=== PATIENT | male | born 1990 | race Hispanic/Latino ===

== ENCOUNTER 2016-09-29 15:03 | Emergency (ER) | payer MEDICAID ==
[2016-09-29 15:34] VITALS: BMI 41.3
[2016-09-29 15:37] VITALS: BP 130/81; RESP 21; TEMP 98.5; O2SAT 96
[2016-09-29] MEDS ORDERED: TDAP Vaccine 0.5 mL Syr IM ONE (15:53)
--- NOTE | 2016-09-29 15:53 | ED PDOC ---
Arrival/HPI - General Chief Complaint: Abnormal Skin Integrity Time Seen by Provider: 09/29/16 15:40 Historian: Patient - History of Present Illness Narrative History of Present Illness (Text): 09/29/16 15:34 25 y/o male, no significant pmh, nkda, last tetanus over 10 years ago, c/o rt. hand 3rd digit finger laceration x 1 hour. Pt. was using the saw and accidentally sliced the skin, no fever or chills, no headache or night sweat, no dizziness, no change in vision, no difficulty moving the finger, no other medical or psychological complaints. Past Medical History - Provider Review Nursing Documentation Reviewed: Yes - Infectious Disease Hx of Infectious Diseases: None - Tetanus Immunization Tetanus Immunization: Unknown - Past Medical History Past Medical History: No Previous - Psychiatric Hx Psychophysiologic Disorder: Yes Hx Bipolar Disorder: Yes Hx Depression: No Hx Emotional Abuse: No Hx Physical Abuse: No Hx Substance Use: No - Past Surgical History Past Surgical History: No Previous - Anesthesia Hx Anesthesia: No - Suicidal Assessment Feels Threatened In Home Enviroment: No Family/Social History - Physician Review Nursing Documentation Reviewed: Yes Family/Social History: Unknown Family HX Smoking Status: Former Smoker Hx Alcohol Use: Yes Frequency of alcohol use: Socially Hx Substance Use: No Hx Substance Use Treatment: No Allergies/Home Meds Allergies/Adverse Reactions: Allergies No Known Allergies Allergy (Verified 09/29/16 15:34) Review of Systems - Review of Systems Constitutional: absent: Fatigue, Fevers Eyes: absent: Vision Changes ENT: absent: Hearing Changes Respiratory: absent: SOB, Cough Cardiovascular: absent: Chest Pain Musculoskeletal: absent: Arthralgias, Back Pain, Neck Pain, Joint Swelling Skin: Other (abrasion). absent: Rash, Pruritis Neurological: absent: Headache, Dizziness, Focal Weakness Physical Exam Vital Signs Reviewed: Yes Vital Signs Temp Pulse Resp BP Pulse Ox 09/29/16 15:36 98.5 F 120 H 21 130/81 96 Temperature: Afebrile Blood Pressure: Normal Respiratory Rate: Normal Appearance: Positive for: Well-Appearing, Non-Toxic, Comfortable Pain Distress: Mild Mental Status: Positive for: Alert and Oriented X 3 - Systems Exam Head: Present: Atraumatic, Normocephalic Pupils: Present: PERRL Extroacular Muscles: Present: EOMI Conjunctiva: Present: Normal Mouth: Present: Moist Mucous Membranes Neck: Present: Normal Range of Motion Respiratory/Chest: Present: Clear to Auscultation, Good Air Exchange. No: Respiratory Distress, Accessory Muscle Use Cardiovascular: Present: Regular Rate and Rhythm, Normal S1, S2. No: Murmurs Abdomen: Present: Normal Bowel Sounds. No: Tenderness, Distention, Peritoneal Signs Back: Present: Normal Inspection Upper Extremity: Present: Normal Inspection, Other (Rt. hand 3rd digit: DIPJ dorsum region visible superficial abrsion noted with no oozing/discharge, FROM without limitation, sensation intact, motor 5/5, +radial pulse, capillary refill < 2 seconds, neurovascular intact. ). No: Cyanosis, Edema Lower Extremity: Present: Normal Inspection. No: Edema Neurological: Present: GCS=15, Speech Normal Skin: Present: Warm, Dry, Normal Color. No: Rashes Psychiatric: Present: Alert, Oriented x 3, Normal Insight, Normal Concentration Medical Decision Making ED Course and Treatment: 09/29/16 15:35 -tdap -wound irrigate with normal saline, clean with betadine, bacitracin and gauze dressing. -Discharge home with motrin, bacitracin oinment, keep the dressing dry and clean for 48 hours, clean with soap and water twice daily, follow up with your own pmd within 2 days, return to the ER for any new or worsening signs or symptoms. - Medication Orders Current Medication Orders: Discontinued Medications Tetanus/Reduced Diphtheria/Acell Pertussis (Boostrix Vaccine Inj) 0.5 ml IM .ONCE ONE Stop: 09/29/16 15:54 - PA / BOROUGH COORDINATOR / Resident Statement / has reviewed & agrees with the documentation as recorded. Disposition/Present on Arrival - Present on Arrival Any Indicators Present on Arrival: No History of DVT/PE: No History of Uncontrolled Diabetes: No Urinary Catheter: No History of Decub. Ulcer: No History Surgical Site Infection Following: None - Disposition Have Diagnosis and Disposition been Completed?: Yes Diagnosis: Finger abrasion Disposition: HOME/ ROUTINE Disposition Time: 15:35 Patient Plan: Discharge Condition: GOOD Additional Instructions: Discharge home with motrin, bacitracin oinment, keep the dressing dry and clean for 48 hours, clean with soap and water twice daily, follow up with your own pmd within 2 days, return to the ER for any new or worsening signs or symptoms. Prescriptions: Bacitracin Ointment [Bacitracin] 1 appful TOP BID #15 g Ibuprofen [Motrin Tab] 600 mg PO QID PRN #24 tab PRN Reason: Other Referrals: [facility] at [facility] [Outside] - Follow up with primary Forms: WORK NOTE
[2016-09-29 16:24] VITALS: PULSE 88
== END 2016-09-29 16:24 | disposition home or self-care (01) ==
LOC: ED 15:03
DX: S60.412A Abrasion of right middle finger, initial encounter (principal); W27.8XXA Contact with other nonpowered hand tool, initial encounter; Y93.89 Activity, other specified; Y92.89 Other specified places as the place of occurrence of the external cause; Z23 Encounter for immunization

== ENCOUNTER 2017-03-14 14:19 | Emergency (ER) | payer MEDICAID ==
[2017-03-14 14:43] VITALS: TEMP 98.8; BMI 36.2
--- NOTE | 2017-03-14 15:06 | ED PDOC ---
Arrival/HPI - General Historian: Patient <Derek Sanchez A - Last Filed: 03/14/17 16:12> <Leo Gil - Last Filed: 03/15/17 18:46> - General Chief Complaint: Abnormal Skin Integrity Time Seen by Provider: 03/14/17 15:00 - History of Present Illness Narrative History of Present Illness (Text): 03/14/17 15:03 26yo male with no PMHx present to ED with right index finger laceration. States he accidentally cut his finger with a saw, while working on a door. states he is up to date with his vaccination. Denies any other complaint. (Derek Sanchez A) Past Medical History - Provider Review Nursing Documentation Reviewed: Yes - Infectious Disease Hx of Infectious Diseases: None - Tetanus Immunization Tetanus Immunization: Unknown - Past Medical History Past Medical History: No Previous - Psychiatric Hx Psychophysiologic Disorder: Yes Hx Bipolar Disorder: Yes Hx Depression: No Hx Emotional Abuse: No Hx Physical Abuse: No Hx Substance Use: No - Past Surgical History Past Surgical History: No Previous - Anesthesia Hx Anesthesia: No - Suicidal Assessment Feels Threatened In Home Enviroment: No <Derek Sanchez A - Last Filed: 03/14/17 16:12> Family/Social History - Physician Review Nursing Documentation Reviewed: Yes Family/Social History: Unknown Family HX Smoking Status: Former Smoker Hx Alcohol Use: Yes Hx Substance Use: No Hx Substance Use Treatment: No <Derek Sanchez A - Last Filed: 03/14/17 16:12> Allergies/Home Meds <Derek Sanchez A - Last Filed: 03/14/17 16:12> <Leo Gil - Last Filed: 03/15/17 18:46> Allergies/Adverse Reactions: Allergies No Known Allergies Allergy (Verified 09/29/16 15:34) Review of Systems - Physician Review All systems were reviewed & negative as marked: Yes - Review of Systems Constitutional: Normal Eyes: Normal ENT: Normal Respiratory: Normal Cardiovascular: Normal Gastrointestinal: Normal Genitourinary Male: Normal Musculoskeletal: Normal Skin: Other (Finger laceration) Neurological: Normal Endocrine: Normal Hemo/Lymphatic: Normal Psychiatric: Normal <Derek Sanchez A - Last Filed: 03/14/17 16:12> Physical Exam Vital Signs Reviewed: Yes Temperature: Afebrile Blood Pressure: Normal Pulse: Regular Respiratory Rate: Normal Appearance: Positive for: Well-Appearing, Non-Toxic, Comfortable Pain Distress: None Mental Status: Positive for: Alert and Oriented X 3 - Systems Exam Head: Present: Atraumatic, Normocephalic Pupils: Present: PERRL Extroacular Muscles: Present: EOMI Conjunctiva: Present: Normal Mouth: Present: Moist Mucous Membranes Neck: Present: Normal Range of Motion Respiratory/Chest: Present: Clear to Auscultation, Good Air Exchange. No: Respiratory Distress, Accessory Muscle Use Cardiovascular: Present: Regular Rate and Rhythm, Normal S1, S2. No: Murmurs Abdomen: Present: Normal Bowel Sounds. No: Tenderness, Distention, Peritoneal Signs Back: Present: Normal Inspection Upper Extremity: Present: Normal Inspection. No: Cyanosis, Edema Lower Extremity: Present: Normal Inspection. No: Edema Neurological: Present: GCS=15, CN II-XII Intact, Speech Normal Skin: Present: Warm, Dry, Normal Color, Laceration (1.7cm linear laceration on right 2nd tuft. FROM. NVI. No tendon involvement). No: Rashes Psychiatric: Present: Alert, Oriented x 3, Normal Insight, Normal Concentration <Diru,Happiness A - Last Filed: 03/14/17 16:12> Vital Signs Temp Pulse Resp BP Pulse Ox 03/14/17 16:45 90 20 147/78 99 03/14/17 14:32 98.8 F 96 H 22 153/82 H 98 - Medication Orders Current Medication Orders: Discontinued Medications Cephalexin Monohydrate (Keflex) 500 mg PO STAT STA PRN Reason: Protocol Stop: 03/14/17 15:01 Last Admin: 03/14/17 15:38 Dose: 500 mg Procedure: Wound Repair - Consent Obtained Consent obtained: Verbal - Performed by Performed by: Mid-level Provider - Indications Indication(s):: Laceration - Location Finger:: Right, Thumb Shape:: Linear Dimensions Length cm: 1.7 - Anesthetic Technique Anesthetic Technique: Local Local/Regional Anesthetic:: Lidocaine 1% - Debris Debris:: None - Complexity Complexity:: Intermediate (2 layer) - Muscle repiar layer closed with Muscle repair layer closed with:: # (6), Size (4), Type (interrupted), Technique , Wound well approximated, Abx ointment applied, Dressing applied, Tetanus up to date - Patient tolerated procedure Patient Tolerated Procedure:: Well <Derek Sanchez A - Last Filed: 03/14/17 16:12> - PA / [employer] / Resident Statement / has reviewed & agrees with the documentation as recorded. <Leo Gil - Last Filed: 03/15/17 18:46> Disposition/Present on Arrival - Present on Arrival Any Indicators Present on Arrival: No History of DVT/PE: No History of Uncontrolled Diabetes: No Urinary Catheter: No History of Decub. Ulcer: No History Surgical Site Infection Following: None - Disposition Have Diagnosis and Disposition been Completed?: Yes Disposition Time: 16:00 Patient Plan: Discharge <Derek Sanchez A - Last Filed: 03/14/17 16:12> <Leo Gil - Last Filed: 03/15/17 18:46> - Disposition Diagnosis: Finger laceration Disposition: HOME/ ROUTINE Condition: STABLE Discharge Instructions (ExitCare): Finger Laceration (ED) Additional Instructions: Keep wound clean and dry Follow up with your doctor in 10days for suture removal Return to ED for any new or worsening symptoms Prescriptions: Cephalexin [Keflex] 500 mg PO TID #21 capsule Referrals: Yvonne Lu DO [Primary Care Provider] - Follow up with primary Forms: [employer] ([place])
[2017-03-14 19:00] VITALS: BP 147/78; PULSE 90; RESP 20; O2SAT 99
== END 2017-03-14 16:45 | disposition home or self-care (01) ==
LOC: ED 14:19
DX: S61.011A Laceration without foreign body of right thumb without damage to nail, initial encounter (principal); W27.8XXA Contact with other nonpowered hand tool, initial encounter; Y92.89 Other specified places as the place of occurrence of the external cause

== ENCOUNTER 2017-03-21 13:15 | Emergency (ER) | payer MEDICAID ==
[2017-03-21 13:21] VITALS: BMI 46.0
--- NOTE | 2017-03-21 14:35 | ED PDOC ---
Arrival/HPI - General Chief Complaint: ENT Problem Time Seen by Provider: 03/21/17 13:52 Historian: Patient - History of Present Illness Narrative History of Present Illness (Text): 03/21/17 14:35 A 26 year old male presents to the emergency department complaining of a cough for 2 days. Patient notes associated sore throat and congestion. Contrary to triage patient denies any difficulty or pain with swallowing. Patient denies any fever, chills, nausea, vomiting, abdominal pain, chest pain, shortness of breath, headache, rash or any other complaints. Patient denies recent travel. PMD: Dr. Lu Time/Duration: Other (2 days) Symptom Course: Unchanged Quality: Other Context: Home Past Medical History - Provider Review Nursing Documentation Reviewed: Yes - Infectious Disease Hx of Infectious Diseases: None - Tetanus Immunization Tetanus Immunization: Unknown - Past Medical History Past Medical History: No Previous - Psychiatric Hx Psychophysiologic Disorder: Yes Hx Bipolar Disorder: Yes Hx Depression: No Hx Emotional Abuse: No Hx Physical Abuse: No Hx Substance Use: No - Past Surgical History Past Surgical History: No Previous - Anesthesia Hx Anesthesia: No - Suicidal Assessment Feels Threatened In Home Enviroment: No Family/Social History - Physician Review Nursing Documentation Reviewed: Yes Family/Social History: No Known Family HX Smoking Status: Never Smoked Hx Alcohol Use: Yes Frequency of alcohol use: Daily Hx Substance Use: No Hx Substance Use Treatment: No Allergies/Home Meds Allergies/Adverse Reactions: Allergies No Known Allergies Allergy (Verified 09/29/16 15:34) Review of Systems - Physician Review All systems were reviewed & negative as marked: Yes - Review of Systems Constitutional: absent: Fevers, Night Sweats ENT: Sore Throat, Sinus Congestion Respiratory: Cough. absent: SOB Cardiovascular: absent: Chest Pain Gastrointestinal: absent: Abdominal Pain, Nausea, Vomiting Skin: absent: Rash Neurological: absent: Headache Physical Exam Vital Signs Reviewed: Yes Vital Signs Temp Pulse Resp BP Pulse Ox 03/21/17 18:04 98.8 F 105 H 20 145/66 96 03/21/17 17:36 98.7 F 104 H 20 130/33 L 100 03/21/17 15:27 98.8 F 112 H 03/21/17 14:54 116 H 20 141/73 95 03/21/17 13:23 100.4 F H 131 H 18 127/84 96 Temperature: Febrile Blood Pressure: Normal Pulse: Tachycardic Respiratory Rate: Normal Appearance: Positive for: Well-Appearing, Non-Toxic, Comfortable Pain Distress: None Mental Status: Positive for: Alert and Oriented X 3 - Systems Exam Head: Present: Atraumatic, Normocephalic Pupils: Present: PERRL Extroacular Muscles: Present: EOMI Conjunctiva: Present: Normal Ears: Present: Normal, NORMAL TM, Normal Canal. No: Erythema, TM Bulging, Fluid , TM Perf Mouth: Present: Moist Mucous Membranes Pharnyx: No: ERYTHEMA, EXUDATE, TONSILS ENLARGED Neck: Present: Normal Range of Motion Respiratory/Chest: Present: Clear to Auscultation, Good Air Exchange. No: Respiratory Distress, Accessory Muscle Use Cardiovascular: Present: Regular Rate and Rhythm, Normal S1, S2. No: Murmurs Abdomen: Present: Normal Bowel Sounds. No: Tenderness, Distention, Peritoneal Signs Back: Present: Normal Inspection Upper Extremity: Present: Normal Inspection. No: Cyanosis, Edema Lower Extremity: Present: Normal Inspection. No: Edema Neurological: Present: GCS=15, CN II-XII Intact, Speech Normal Skin: Present: Warm, Normal Color, Diaphoretic. No: Rashes Psychiatric: Present: Alert, Oriented x 3, Normal Insight, Normal Concentration Medical Decision Making ED Course and Treatment: 03/21/17 14:35 Impression: A 26 year old male with cough, sore throat and congestion. Plan: -- Chest xray -- Throat culture, Rapid Flu, Rapid strep -- Motrin -- Reassess and disposition Progress Notes: Rapid flu : (+) CXR : NAD, as read by PA On re-evaluation, patient is now afebrile T 99 P 115. Labs, EKG, NS bolus IV ordered. Patient remains awake, alert and oriented x3, answering all questions appropriately with no tremors. Patient states that his last drink was 5 days ago and he has never had DTs in the past. Tolerating po fluids. EKG : ST at 115 bpm, no acute ST changes, as read by PA Repeat VS : T 98.8 P 105 R 20 BP 145/66 O2sat 96%RA. NS bolus finished, patient is afebrile and hear rate has improved. Labs reviewed : wbc is wnl, lactate 1.1 , trop (-), etoh (-). On re-evaluation, patient is resting comfortably in no acute distress, speaking in full sentences, breathing easy and unlabored, remains AAOx3 in no acute distress, still no tremors or any other signs of DT. Patient states that he feels much improved and feels comfortable going home. He understands the diagnosis of flu. Advised bedrest, drink plenty of water and to f/u with pmd in 1-2 days for re-evaluation or return to the ER for any new or worsening symptoms. - Lab Interpretations Lab Results: 03/21/17 16:00 03/21/17 16:00 Lab Results 03/21/17 16:00: Alcohol, Quantitative < 10 03/21/17 16:00: Sodium 136, Chloride 102, Potassium 3.8, Carbon Dioxide 22, Anion Gap 16, BUN 12, Creatinine 0.8, Est GFR ( Amer) > 60, Est GFR (Non- Af Amer) > 60, Random Glucose 95, Calcium 9.3, Total Bilirubin 0.7, AST 38, ALT 62 H, Alkaline Phosphatase 67, Troponin I < 0.01, Total Protein 7.5, Albumin 4.2 , Globulin 3.2, Albumin/Globulin Ratio 1.3 03/21/17 16:00: pO2 93 H, VBG pH 7.43, VBG pCO2 37.0 L, VBG HCO3 24.6, VBG Total CO2 25.7, VBG O2 Sat (Calc) 98.8 H, VBG Base Excess 0.5, VBG Potassium 3.8 , Sodium 135.0, Chloride 103.0, Glucose 101, Lactate 1.1, FiO2 21.0, Venous Blood Potassium 3.8 03/21/17 16:00: PT 12.2, INR 1.12 H, APTT 31.7 03/21/17 16:00: WBC 5.0, RBC 4.88, Hgb 14.1, Hct 41.5 L, MCV 85.0, MCH 28.9, MCHC 34.0, RDW 13.4, Plt Count 146, MPV 9.4, Gran % 72.0 H, Lymph % (Auto) 15.9 L, [place] % (Auto) 11.9 H, Eos % (Auto) 0.0 L, Baso % (Auto) 0.2, Gran # 3.62, Lymph # 0.8 L, [place] # 0.6, Eos # 0.0, Baso # 0.01 03/21/17 14:15: Influenza Typ A,B (EIA) Pos for influenza b H 03/21/17 13:40: Grp A Beta Strep Ag Negative - RAD Interpretation Radiology Orders: 03/21/17 14:13 CHEST TWO VIEWS (PA/LAT) [RAD] Stat - Medication Orders Current Medication Orders: Discontinued Medications Sodium Chloride (Sodium Chloride 0.9%) 1,000 mls @ 1,000 mls/hr IV .Q1H STA Stop: 03/21/17 16:40 Last Admin: 03/21/17 16:06 Dose: 1,000 mls/hr eMAR Start Stop Document 03/21/17 16:06 GMI (Rec: 03/21/17 16:06 GMI [id number]) Intravenous Solution Start Date 03/21/17 Start Time 16:06 Ibuprofen (Motrin Tab) 800 mg PO STAT STA Stop: 03/21/17 14:13 Last Admin: 03/21/17 14:21 Dose: 800 mg Oseltamivir Phosphate (Tamiflu Cap) 75 mg PO STAT STA PRN Reason: Protocol Stop: 03/21/17 15:38 Last Admin: 03/21/17 16:57 Dose: 75 mg - PA / AUTOMOTIVE TIRE TECHNICIAN / Resident Statement MD/DO has reviewed & agrees with the documentation as recorded. - Scribe Statement The provider has reviewed the documentation as recorded by the Abigail Fritz Provider Scribe Attestation: All medical record entries made by the Scribe were at my direction and personally dictated by me. I have reviewed the chart and agree that the record accurately reflects my personal performance of the history, physical exam, medical decision making, and the department course for this patient. I have also personally directed, reviewed, and agree with the discharge instructions and disposition. Disposition/Present on Arrival - Present on Arrival Any Indicators Present on Arrival: No History of DVT/PE: No History of Uncontrolled Diabetes: No Urinary Catheter: No History of Decub. Ulcer: No History Surgical Site Infection Following: None - Disposition Have Diagnosis and Disposition been Completed?: Yes Diagnosis: Influenza Disposition: HOME/ ROUTINE Disposition Time: 18:15 Patient Plan: Discharge Condition: STABLE Discharge Instructions (ExitCare): Influenza (ED) Print Language: ESTONIAN Additional Instructions: Thank you for letting us take care of you today. You were treated for influenza. The emergency medical care you received today was directed at your acute symptoms. If you were prescribed any medication, please fill it and take as directed. It may take several days for your symptoms to resolve. Return to the Emergency Department if your symptoms worsen, do not improve, or if you have any other problems. Please contact your doctor in 2 days for re-evaluation and follow up. Bring any paperwork you were given at discharge with you along with any medications you are taking to your follow up visit. Our treatment cannot replace ongoing medical care by a primary care provider (PCP) outside of the emergency department. Thank you for allowing the [facility] team to be part of your care today. Prescriptions: Ibuprofen [Motrin Tab] 800 mg PO TID PRN #20 tab PRN Reason: Fever >100.4 F Oseltamivir Phosphate [Tamiflu] 75 mg PO BID #10 capsule Referrals: Yvonne Lu DO [Primary Care Provider] - Follow up with primary Forms: [employer] (Citizen Of [place]), WORK NOTE
[2017-03-21 14:55] VITALS: RESP 20
--- NOTE | 2017-03-21 15:03 | RAD ---
HISTORY: Shortness of breath. COMPARISON: No prior. TECHNIQUE: Chest PA and lateral FINDINGS: LUNGS: No active pulmonary disease. PLEURA: No significant pleural effusion identified. No pneumothorax apparent. CARDIOVASCULAR: Normal. OSSEOUS STRUCTURES: No significant abnormalities. VISUALIZED UPPER ABDOMEN: Normal. OTHER FINDINGS: None. IMPRESSION: No active disease.
[2017-03-21] MEDS ORDERED: Sodium Chloride 0.9% 1,000 ML IV STA (15:41)
[2017-03-21 16:14] LABS: VENOUS BLOOD GAS BASE EXCESS 0.5 mmol/L (0.0-2.0); VENOUS BLOOD PH 7.43 (7.32-7.43)
[2017-03-21 16:17] LABS: BASO # 0.01 K/mm3 (0.0-2.0); BASO % 0.2 % (0.0-3.0); GRAN # 3.62 (1.4-6.5); HEMATOCRIT 41.5 % (42.0-52.0); LYMPH # 0.8 (1.2-3.4); LYMPH % 15.9 % (22.0-35.0); MEAN CORPUSCULAR HEMOGLOBIN 28.9 pg (25.0-35.0); MEAN PLATELET VOLUME 9.4 fl (7.0-11.0); MONO # 0.6 (0.1-0.6); MONO % 11.9 % (1.0-6.0); RED CELL DISTRIBUTION WIDTH 13.4 % (11.5-14.5)
[2017-03-21 16:25] LABS: ALB/GLOB RATIO 1.3 (1.1-1.8); ALKALINE PHOSPHATASE 67 U/L (38-126); ALT/SGPT 62 U/L (7-56); AST/SGOT 38 U/L (17-59); BILIRUBIN,TOTAL 0.7 mg/dL (0.2-1.3); BLOOD UREA NITROGEN 12 mg/dL (7-21); CALCIUM 9.3 mg/dL (8.4-10.5); CARBON DIOXIDE 22 mmol/L (21-33); CHLORIDE 102 mmol/L (98-107); GFR AFRICAN-AMERICAN > 60; GLUCOSE,RANDOM 95 mg/dL (70-110); POTASSIUM 3.8 mmol/L (3.6-5.0); SODIUM 136 mmol/L (132-148); TOTAL PROTEIN 7.5 g/dL (5.8-8.3)
[2017-03-21 16:34] LABS: INR 1.12 (0.93-1.08)
[2017-03-21 16:35] LABS: PARTIAL THROMBOPLASTIN TIME 31.7 Seconds (25.1-36.5)
[2017-03-21 16:36] LABS: TROPONIN I < 0.01 ng/mL
[2017-03-21 18:20] VITALS: BP 145/66; PULSE 105; TEMP 98.8; O2SAT 96
--- NOTE | 2017-03-22 09:53 | CARD ---
APPROVED REPORT EKG Measurement Heart [id number] <Conclusion> Sinus tachycardia Nonspecific T wave abnormality
== END 2017-03-21 18:54 | disposition home or self-care (01) ==
LOC: ED 13:15
DX: J11.1 Influenza due to unidentified influenza virus with other respiratory manifestations (principal)
CPT/HCPCS: 71020; 80053; 80320; 82803; 84484; 85025; 85610; 85730; 87040; 87070; 87430; 87804; 93005; 99285; J7040